=== PATIENT | male | born 1990 | race Caucasian/White ===

== ENCOUNTER 2021-09-02 15:35 | Inpatient (IN) | payer OTHER ==
[~2021-09-02] VITALS: Ht 182.9 cm; Wt 68.0 kg
[2021-09-02 19:04] LABS: HEMOGLOBIN 15.8 gm/dl (14.0-17.5); RED BLOOD COUNT 4.93 M/UL (4.20-5.50); WHITE BLOOD COUNT 15.2 K/UL (4.5-11.0)
[2021-09-02 19:31] LABS: BUN/CREATININE RATIO 13 (0-10)
[2021-09-03] MEDS ORDERED: BUSPIRONE HCL30 MG PO (02:11)
[2021-09-03] MEDS ORDERED: GABAPENTIN600 MG PO (02:13)
[2021-09-03] MEDS ORDERED: SUBOXONE 8 MG-1 EACH SL (02:16)
[2021-09-03] MEDS ORDERED: FLUOXETINE HCL40 MG PO (02:19)
[2021-09-04] MEDS ORDERED: QUETIAPINE FUM100 MG PO ×2 (11:23→11:24)
[2021-09-06] MEDS ORDERED: CYCLOBENZAPRINE10 MG PO (14:04)
[2021-09-06] MEDS ORDERED: SENNA S TABLET1 EACH PO (14:04)
[2021-09-06] MEDS ORDERED: HYDROCODON-ACE1 EAC2 PO ×2 (14:04→19:34)
== END 2021-09-06 18:46 | disposition home or self-care (01) | DRG 516 ==
LOC: EDBD 15:35 → ER1 15:35 → CDU 22:53 → M/S 09-03 00:58
PROVIDERS: Orthopaedic Surgery; Physician Assistant; ADMIT Surgery
PROC: 0HQ0XZZ Repair Scalp Skin, External Approach (ICD-10-PCS; 2021-09-04)
PROC: 0HQ1XZZ Repair Face Skin, External Approach (ICD-10-PCS; 2021-09-04)
PROC: 0PSB04Z Reposition Left Clavicle with Internal Fixation Device, Open Approach (ICD-10-PCS; principal; 2021-09-04 09:15)
DX: S42.022A Displaced fracture of shaft of left clavicle, initial encounter for closed fracture (principal); S22.42XA Multiple fractures of ribs, left side, initial encounter for closed fracture; F11.20 Opioid dependence, uncomplicated; Z20.822 Contact with and (suspected) exposure to COVID-19; F32.A Depression, unspecified; F41.9 Anxiety disorder, unspecified; F22 Delusional disorders; F19.129 Other psychoactive substance abuse with intoxication, unspecified; S01.112A Laceration without foreign body of left eyelid and periocular area, initial encounter; S01.01XA Laceration without foreign body of scalp, initial encounter; F15.19 Other stimulant abuse with unspecified stimulant-induced disorder; W17.81XA Fall down embankment (hill), initial encounter; Z98.890 Other specified postprocedural states; Z80.1 Family history of malignant neoplasm of trachea, bronchus and lung; Z82.5 Family history of asthma and other chronic lower respiratory diseases; Z82.49 Family history of ischemic heart disease and other diseases of the circulatory system; Z88.1 Allergy status to other antibiotic agents; Z56.0 Unemployment, unspecified
CPT/HCPCS: 12013; 70450; 70486; 71045; 71250; 72125; 72128; 72131; 72170; 73000; 73030; 80053; 82550; 82553; 84484; 85025; 90471; 90715; 93005; 94640; 94664; 94760; 96374; 96376; 99285; C1713; C1762; G0378; J0690; J1100; J1170; J1885; J2001; J2250; J2270; J2405; J2704; J2795; J3010; J7030; J7120; Q9967; U0002